=== PATIENT | female | born 1940 | race Caucasian/White ===

== ENCOUNTER → 2016-10-18 | Outpatient (CLI) | payer MEDICARE, BC ==
[~2016-10-18] MED LIST: ASPIR 8181 MG PO; ASPIRIN EC81 MG PO; BUTRANS1 EAC1 TOP; CRANBERRY500 M1 PO; CYMBALTA30 MG PO; DELTASONE5 MG PO; DOXYCYCLINE100 MG PO; FEOSOL325 MG PO; GLUCOPHAGE500 MG PO; HYDROCODON-ACE1 EAC4 PO; LEVOTHROID (S125 MCG PO; LOPRESSOR50 MG PO; LOVAZA1 GM PO; NORCO 5-325 MG1 TAB PO; OMEGA 3 1,0001 EACH PO; OXYGEN M-15 INH; PRILOSEC20 M1 PO; PRINIVIL (ZESTR20 MG PO; VITAMIN D1000 UNIT PO; VITAMIN D35000 UNI1 PO
--- NOTE | ~2016-10-18 | PUL ---
PATIENT'S NAME: CATE FELTON [facility] AGE: 76 Y [address] ROOM: [place] [address] LOCATION: [facility] ADMIT DATE: 10/18/2016 Pulmonary DISCHARGE DATE: FAMILY PHYSICIAN: Arlyn Triplett MD ATTENDING PHYSICIAN: Arlyn Triplett NAME OF PROCEDURE: Sleep study DATE OF PROCEDURE: 10/18/16 TECH: HEIDY Pina [place] [facility] [id number] MEDICAL HISTORY: The patient is a 76-year-old overweight woman with a history of persistent difficulty maintaining wakefulness. SLEEP STAGE SUMMARY: The patient was studied for 469 minutes of which she slept 345 minutes. She fell asleep in 13 minutes and slept for 74% of the night. Sleep architecture revealed a decline in slow wave, and REM sleep. RESPIRATORY SUMMARY: Oxygen saturations ranged from 78-95% and were below 88% for 14 minutes. There were a total of 49 obstructive apneas and 60 hypopneas for an apnea/hypopnea index moderately elevated at 19 events per hour. The majority of the events occurred to late in the study to allow for initiation of CPAP. Essentially all of the events occurred with the patient sleeping supine. EKG SUMMARY: Average heart rate during sleep was 71 beats per minutes. LIMB MOVEMENT SUMMARY: No clinically relevant periodic limb movements were noted. SUMMARY: Positional obstructive sleep apnea moderate in severity. PLAN: The patient will receive results from the ordering provider. BRAIN LING MD [facility]/ PATIENT'S NAME: CATE FELTON [facility] AGE: 76 Y [address] ROOM: [place] [address] LOCATION: [facility] ADMIT DATE: 10/18/2016 Pulmonary DISCHARGE DATE: FAMILY PHYSICIAN: Arlyn Triplett MD ATTENDING PHYSICIAN: Arlyn Triplett /[id number] dtt: 03/24/17 1252 , Brain Ling dtd: 10/21/16 0902
== END ==
LOC: GSLP 09-21 21:00
DX: G47.34 Idiopathic sleep related nonobstructive alveolar hypoventilation (principal); G47.33 Obstructive sleep apnea (adult) (pediatric)

== ENCOUNTER → 2016-11-23 | Outpatient (CLI) | payer MEDICARE, BC | END | disposition disaster alternative care site (69) | LOC: GBCOE 11:30 | DX: D75.89 Other specified diseases of blood and blood-forming organs (principal); D59.9 Acquired hemolytic anemia, unspecified; Z85.3 Personal history of malignant neoplasm of breast | CPT/HCPCS: G0206; G0279 ==

== ENCOUNTER 2017-01-10 10:30 | Emergency (ER) | payer MEDICARE, BC ==
--- NOTE | ~2017-01-10 | ER ---
PATIENT'S NAME: CATE FELTON [facility] AGE: 76 Y [address] ROOM: [place] [address] LOCATION: [facility] ADMIT DATE: 01/10/2017 ER/Outpatient Report DISCHARGE DATE: FAMILY PHYSICIAN: Arlyn Triplett MD ATTENDING PHYSICIAN: Eyad Cole Time of arrival: 1030 hours. Time of evaluation: 1035 hours. CHIEF COMPLAINT: Back pain. HISTORY OF PRESENT ILLNESS: The patient is a 76-year-old female, who presents to the emergency department today with a chief complaint of back pain. She reports this started about 12 hours prior to arrival. She reports that she feels like she needs to have a bowel movement but cannot. Last bowel movement was yesterday. The patient denies any vomiting. No weakness. No shortness of breath. She does have some increased fatigued. She does have some dull pressure. She denies any fevers or chills. No trauma or injury. PAST MEDICAL HISTORY: 1. Arthritis. 2. Hypothyroid. 3. Dyslipidemia. 4. Hypertension. 5. Polymyalgia rheumatica. 6. Diabetes mellitus type 2. PAST SURGICAL HISTORY: 1. Gallbladder. 2. Knee. SOCIAL HISTORY: The patient denies any tobacco, alcohol, or illicit drug use. ALLERGIES: NO KNOWN DRUG ALLERGIES. MEDICATIONS: Please see list. REVIEW OF SYSTEMS: All systems are reviewed by myself and are negative with the exception of those discussed in HPI and past medical history as well as the patient does PATIENT'S NAME: CATE FELTON [facility] AGE: 76 Y [address] ROOM: [place] [address] LOCATION: [facility] ADMIT DATE: 01/10/2017 ER/Outpatient Report DISCHARGE DATE: FAMILY PHYSICIAN: Arlyn Triplett MD ATTENDING PHYSICIAN: Eyad Cole report some chest pain and all that just started this morning and has episodes of sharp. PHYSICAL EXAMINATION: VITAL SIGNS: Weight 122.9 kg. Blood pressure 179/83, pulse 68, respiratory rate 18, temperature 97.3, oxygen saturation 98% on room air. GENERAL: The patient is a 76-year-old female, who appears stated age, in mild acute distress. HEENT: Head: Normocephalic and atraumatic. Pupils are equal, round, and reactive to light and accommodation. Extraocular motions are intact. Mucous membranes are moist. NECK: Supple. There is no nuchal rigidity. CARDIOVASCULAR: Regular rate and rhythm. No murmurs, rubs, or gallops. LUNGS: Clear to auscultation bilaterally. No wheezes, rales, or rhonchi. ABDOMEN: Soft, nontender. No rebound, rigidity, or guarding. Positive bowel sounds. The patient does have some mild left CVA tenderness to palpation. MUSCULOSKELETAL: The patient ambulates to the room. Moves all 4 extremities. SKIN: Warm and dry. No rashes or lesions noted. LABORATORY DATA AND X-RAYS: Labs and x-rays are obtained. EKG is obtained and is interpreted by myself on 1101 hours shows sinus rhythm with a rate of 73 left axis deviation, normal interval. No ST elevation or ST depression. 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 Urinalysis shows 100 leukocyte esterase, 100 glucose, five ketones, zero blood, 50 to 100 WBCs, 10 to 20 epithelials. CBC: White blood cell count 14.4, otherwise, normal. ANC is 13. Lactate 3.3. D-dimer 0.95. Coags are normal. Procalcitonin 0.10. CMP is unremarkable except for a BUN 25 and creatinine 1.2. LFTs are normal. Lipase is normal. CK is normal. Troponin is less than 0.04. CT scan of the abdomen and pelvis without IV contrast shows a nonobstructing 2 mm stone in left ureteral vesicular junction with mild hydronephrosis noted. IMPRESSION: 1. A 2-mm obstructing ureterolithiasis at the left ureteral vesicular junction. 2. Mild hydronephrosis secondary to a 2-mm obstructing ureterolithiasis at the left ureteral vesicular junction. 3. Questionable urinary tract infection. 4. Initial visit. EMERGENCY DEPARTMENT COURSE: The patient brought back to the examination room. Seen and evaluated by PATIENT'S NAME: JAIDEN FELTONKOKO Gaby [facility] AGE: 76 Y [address] ROOM: [place], [place] [address] LOCATION: [facility] ADMIT DATE: 01/10/2017 ER/Outpatient Report DISCHARGE DATE: FAMILY PHYSICIAN: Arlyn Triplett MD ATTENDING PHYSICIAN: Eyad Cole myself. IV is established. Laboratory analysis and imaging are obtained as described above. The patient did undergo a workup here in the emergency department. Does show evidence of a 2 mm ureterolithiasis with mild hydronephrosis. The patient's chest pain is not consistent with ACS. She has normal cardiac enzymes. The patient is reevaluated. She reports that she feels much improved. I have discussed the results of the workup with the patient. I have written a prescription for Flomax, [place], and Keflex. I have discussed that I would like her to follow up closely with Dr. Triplett, primary care doctor for re-evaluation of this. She is not having chest pain at this time. It just lasted for a few seconds. We will cover for potential urinary infection. I have asked she follows up with Urology. I have discussed return to care instructions including worsening symptoms or any other concerns return to the emergency department as soon as possible. The patient is agreeable without further questions at this time. DISPOSITION: The patient discharged home in good condition. DO LORI DENSON/modl /[id number] d: 01/10/17 1530 t: 01/11/17 1106, OUTPATIENT REPORT
--- NOTE | ~2017-01-10 | ER ---
PATIENT'S NAME: LISA FELTON [facility] AGE: 76 Y [address] ROOM: [place] [address] LOCATION: [facility] ADMIT DATE: 01/10/2017 ER/Outpatient Report DISCHARGE DATE: FAMILY PHYSICIAN: Arlyn Triplett MD ATTENDING PHYSICIAN: Eyad Cole This is a followup interaction with the patient, Lisa Felton. The patient was seen and evaluated by myself on 01/10/2017. HOSPITAL COURSE: The patient was diagnosed with a 2 mm kidney stone yesterday and did have a questionable urinary tract infection. At that time, she was discharged home with pain medicine and antibiotics. She was feeling good and was asked to follow up with the primary care doctor. Today, 01/11/2017, I did receive preliminary urine culture, which was positive for gram-negative rods greater than 100,000 CFUs per mL. The patient was contacted via phone at 0959 hours by myself. Upon questioning, the patient reports that she did have a few chills last night, but did sleep very well. She feels very good at this time. She does report that she passed her stone earlier this morning. She had good sleep last night. She did get her antibiotics filled and is taking her antibiotics. I have discussed the improtance of finishing these antibiotics. I have discussed with her to return to the emergency department for any high fevers, chills, or any worsening symptoms. I have discussed returning for any chest pain. The patient is feeling very well at this time. I did inform her of the preliminary data of the urine culture and have stressed following up with Dr. Triplett her primary care provider. DO LORI DENSON/eileen /[id number] d: 01/11/17 1135 t: 01/12/17 0846, OUTPATIENT REPORT
[~2017-01-10 10:30] MED LIST changes: -ASPIRIN EC81 MG PO; -BUTRANS1 EAC1 TOP; -CRANBERRY500 M1 PO; -CYMBALTA30 MG PO; -GLUCOPHAGE500 MG PO; -HYDROCODON-ACE1 EAC4 PO; -OMEGA 3 1,0001 EACH PO; -VITAMIN D35000 UNI1 PO
[2017-01-10 11:17] LABS: BASOPHIL % 0.3 %; EOSINOPHIL # 0.1 K/uL (0.0-0.5); EOSINOPHIL % 0.8 %; HEMATOCRIT 39.6 % (33.0-46.0); HEMOGLOBIN 13.1 g/dL (10.0-15.0); IMMATURE GRANULOCYTE # 0.1 K/uL (0.0-0.3); IMMATURE GRANULOCYTE % 0.5 %; LYMPHOCYTE # 1.1 K/uL (0.8-4.0); LYMPHOCYTE % 7.3 %; MCH 33.9 pg (27.0-34.0); MCHC 33.1 gm/dL (32.0-36.5); MCV 102.3 fl (83.0-98.0); MONOCYTE # 0.2 K/uL (0.0-1.0); MONOCYTE % 1.1 %; MPV 8.8 fl (9.4-12.4); NRBC % 0 /100WBC (0-0.00); PLATELET COUNT 166 K/uL (150-450); RBC 3.87 M/uL (3.50-5.50); WBC 14.4 K/uL (4.0-11.0)
[2017-01-10 11:34] LABS: INR - (THERAPEUTIC) 0.99 (0.92-1.07); PROTIME 10.4 SECONDS (9.8-11.4); PTT 21 SECONDS (25-32)
[2017-01-10 11:42] LABS: ALBUMIN 3.5 gm/dL (3.5-5.0); ALK PHOS 44 IU/L (33-138); ALT 63 IU/L (12-78); ANION GAP 16.5 (10.0-19.0); AST 48 IU/L (10-40); BLOOD UREA NITROGEN 25 mg/dL (6-24); CALCIUM 10.3 mg/dL (8.5-10.5); CHLORIDE 103 mMol/L (96-110); CO2 23 mMol/L (22-32); CPK 86 IU/L (21-215); CREATININE 1.2 mg/dL (0.5-1.1); ESTIMATED GFR (MDRD EQUATION) 44; POTASSIUM 3.5 mMol/L (3.7-5.1); SODIUM 139 mMol/L (135-145)
[2017-01-10 12:41] LABS: BILIRUBIN URINE NEGATIVE (NEGATIVE); BLOOD URINE 10 /UL (NEGATIVE); COLOR URINE YELLOW (YELLOW); GLUCOSE URINE 100 mg/dL (NEGATIVE); KETONE URINE 5 mg/dL (NEGATIVE); LEUKOCYTES URINE 100 /UL (NEGATIVE); NITRITE URINE NEGATIVE (NEGATIVE); PROTEIN URINE NEGATIVE (NEGATIVE); TURBIDITY URINE CLEAR (CLEAR); UROBILINOGEN URINE NORMAL (NORMAL)
[2017-01-10 12:52] LABS: AMORPHOUS URINE 2+ (NEGATIVE); BACTERIA URINE NEGATIVE (NEGATIVE); MUCUS URINE 1+ (NEGATIVE); WBC URINE 50-100 #/HPF (NEGATIVE)
[2017-02-24] MEDS ORDERED: GLUCOPHAGE500 MG PO (14:11)
[2017-02-24] MEDS ORDERED: OMEGA 3 1,0001 EACH PO (14:11)
[2017-02-24] MEDS ORDERED: CYMBALTA30 MG PO (14:12)
[2017-02-24] MEDS ORDERED: HYDROCODON-ACE1 EAC4 PO (14:13)
[2017-02-24] MEDS ORDERED: BUTRANS1 EAC1 TOP (14:13)
[2017-02-24] MEDS ORDERED: VITAMIN D35000 UNI1 PO (14:14)
[2017-02-24] MEDS ORDERED: ASPIRIN EC81 MG PO (14:14)
[2017-02-24] MEDS ORDERED: CRANBERRY500 M1 PO (14:14)
== END 2017-01-10 13:53 | disposition disaster alternative care site (69) ==
LOC: GMED 10:30
PROVIDERS: Emergency Medicine
DX: N13.2 Hydronephrosis with renal and ureteral calculous obstruction (principal); I10 Essential (primary) hypertension; E11.9 Type 2 diabetes mellitus without complications; M19.90 Unspecified osteoarthritis, unspecified site; E03.9 Hypothyroidism, unspecified; E78.5 Hyperlipidemia, unspecified; M35.3 Polymyalgia rheumatica; Z79.899 Other long term (current) drug therapy; Z98.890 Other specified postprocedural states; Z79.84 Long term (current) use of oral hypoglycemic drugs; Z79.82 Long term (current) use of aspirin
CPT/HCPCS: J1885; J3010; J7030

== ENCOUNTER → 2017-02-11 | Outpatient (CLI) | payer MEDICARE, BC ==
[~2017-02-11] MED LIST changes: +ASPIRIN EC81 MG PO; +BUTRANS1 EAC1 TOP; +CRANBERRY500 M1 PO; +CYMBALTA30 MG PO; +GLUCOPHAGE500 MG PO; +HYDROCODON-ACE1 EAC4 PO; +OMEGA 3 1,0001 EACH PO; +VITAMIN D35000 UNI1 PO
--- NOTE | ~2017-02-11 | ESTC ---
Cardiac Perfusion Imaging Demographics Patient Name PURNIMA Griffin Gender Female Patient Number [id number] Race Visit Number [id number] Ethnicity [employer] ID Room Number Accession Number [id number] Height Date of 1940 Weight Age 77 year(s) BSA Referring Physician Jeovanny Fuentes MD BMI Ioana Griffin MD Interpreting Jeovanny Fuentes MD Date of study 02/11/2017 Physician Supervising /KETAN Tony NM Technologist Sawyer Wiseman APRN Ordering Physician Jeovanny Fuentes MD Stress certified endoscopy technician Stress ECG Reading Viraj Tony Nurse Brock Morrison Physician ROLO lunchroom worker Procedure Type: Nuclear Stress Test:Pharmacological, Lexiscan, Cardiolite Stress Test Procedure Start time: 02/11/2017 08:07 Indications: Chest pain. Risk Factors The patient risk factors include:obesity, hypercholesterolemia, hypertension, family history of premature CAD and diabetes mellitus. Conclusions Summary Cardiolite SPECT images demonstrates decreased tracer uptake on the rest images in the anterior wall and anteroseptal regions. There is redistribution in the septal region on the stress images and an inducible reversible defect involving the anterior wall on the stress images consistent with possible ischemia. TID is markedly abnormal at 1.33 Gated images demonstrate overall preserved left ventricular function without inducible wall motion abnormalities. LVEF is 70% Stress Protocols Resting ECG RSR with RBBB Resting HR:86 bpm Resting BP:153/65 mmHg Pre-stress physical exam: Complains of intermittent Lt chest discomfort. Pain free today. Stress Protocol:Pharmacologic Peak HR:100 bpm HR response: Appropriate Peak BP:182/86 mmHg BP response: Appropriate Predicted HR: 144 bpm HR/BP product:49040 % of predicted HR: 69 Reason for termination:Infusion complete ECG Findings SR to Sinus Tachycardia Arrhythmias None Symptoms Cough, flushing. Stress Interpretation Appropriate hemodynamic response to Lexiscan. No significant ST-T wave changes with Lexiscan. ECG portion is negative for ischemia by diagnostic criteria. Stress supervision and interpretation provided by Hortencia Cali APRN . Imaging Results Summed scores - Summed stress score: 14 - Summed rest score: 13 - Summed difference score: 1 Stress ejection Ejection fraction:70 % EDV :87 ml ESV :26 ml Stroke volume :61 ml LV mass :128 gr Imaging Protocols Rest Stress Isotope:Tc99m Sestamibi IV Isotope: Tc99m Sestamibi IV Isotope dose:16.5 mCi Isotope dose:45.4 mCi Date:02/11/2017 07:35 Date:02/11/2017 08:50 Technique: SPECT Technique: Gated Supine SPECT Supine Scan Time:30 minutes post injection Scan Time:45-60 minutes post injection Procedure Medications - Regadenoson (Lexiscan) 0.4 mg IV over 10-15 sec. I.V. 0.4 mg. Medical History Admission Data Admission date: 02/11/2017 Admission Time: 07:06 Hospital Status: Outpatient. Signatures dtt: Alfredo Up (cardio) dtd: 02/11/17 0807 Physician Self Edit
== END | disposition disaster alternative care site (69) ==
LOC: GLAB 07:00 → GRAD 07:06
DX: E78.5 Hyperlipidemia, unspecified (principal); E78.00 Pure hypercholesterolemia, unspecified; I10 Essential (primary) hypertension; E66.9 Obesity, unspecified; R07.9 Chest pain, unspecified; R06.00 Dyspnea, unspecified; Z82.49 Family history of ischemic heart disease and other diseases of the circulatory system
CPT/HCPCS: A9500; J2785

== ENCOUNTER → 2017-02-23 | Outpatient (CLI) | payer MEDICARE, BC ==
[2017-02-23 16:54] LABS: BASOPHIL % 0.4 %; EOSINOPHIL # 0.1 K/uL (0.0-0.5); EOSINOPHIL % 1.3 %; HEMATOCRIT 36.3 % (33.0-46.0); HEMOGLOBIN 12.2 g/dL (10.0-15.0); IMMATURE GRANULOCYTE # 0.1 K/uL (0.0-0.3); IMMATURE GRANULOCYTE % 0.8 %; LYMPHOCYTE # 1.7 K/uL (0.8-4.0); LYMPHOCYTE % 16.8 %; MCH 34.9 pg (27.0-34.0); MCHC 33.6 gm/dL (32.0-36.5); MCV 103.7 fl (83.0-98.0); MONOCYTE # 0.4 K/uL (0.0-1.0); MONOCYTE % 4.4 %; MPV 9.1 fl (9.4-12.4); NEUTROPHIL # (ANC) 7.6 K/uL (1.8-7.8); NEUTROPHIL % 76.3 %; NRBC % 0 /100WBC (0-0.00); RDW-CV 13.7 % (11.9-14.6); WBC 9.9 K/uL (4.0-11.0)
[2017-02-23 17:00] LABS: PLATELET COUNT 204 K/uL (150-450)
[2017-02-23 17:03] LABS: ALBUMIN 3.4 gm/dL (3.5-5.0); ANION GAP 14.2 (10.0-19.0); CALCIUM 10.1 mg/dL (8.5-10.5); CREATININE 1.2 mg/dL (0.5-1.1); PHOSPHORUS 2.5 mg/dL (2.5-4.9); POTASSIUM 4.2 mMol/L (3.7-5.1)
== END | disposition disaster alternative care site (69) ==
LOC: LCNC 16:41
PROVIDERS: Internal Medicine Interventional Cardiology
DX: R07.9 Chest pain, unspecified (principal)

== ENCOUNTER 2017-03-01 07:55 | Outpatient (CLI) | payer MEDICARE, BC ==
[~2017-03-01] VITALS: Ht 162.6 cm; Wt 122.4 kg
--- NOTE | ~2017-03-01 | CATH ---
Cardiac Diagnostic Report Demographics Patient Name PURNIMA Griffin Gender Female Date of 1940 Age 77 year(s) Patient Number [id number] Date of Study 03/01/2017 Visit Number [id number] Room Number [id number] [place] [id number] Ht 163 cm Wt 122.4 kg Referring Ioana Griffin MD Primary Physician Physician Performing Jeovanny Fuentes MD Secondary Physician Physician Diagnostic Jeovanny Fuentes MD Assisting Physician Physician Interventional Physician Field Map Technician Physician Findings and Conclusions Diagnostic Findings and Conclusion Non obstructive CAD Normal LV function Diagnostic Recommendations Medical therapy Procedure Description The patient was brought to the diagnostic cardiac catheterization-EP laboratory in the fasting, non-sedated state. Informed consent was obtained in the written and verbal form after the risks and benefits were explained. The patient had no further questions and agreed to proceed. The planned puncture-incision site(s) were shaved and prepped with ChloraPrep and draped in the usual sterile manner. Conscious sedation, supplemental oxygen, and pain control medications were delivered by a registered nurse under physician guidance. Surface ECG rhythm, blood pressure measurement, and pulse oximetry were monitored throughout the procedure. Arterial access. The access site was infiltrated with lidocaine. The vessel was entered with the Seldinger technique. A sheath was advanced into the vessel and used for catheter placement. Selective left coronary angiography. A catheter was advanced into the left coronary vessel ostium under Fluoroscopic guidance. Contrast was injected by hand. Images were obtained in multiple projections. Selective right coronary angiography. A catheter was advanced into the right coronary vessel ostium under fluoroscopic guidance. Contrast was injected by hand. Images were obtained in multiple projections. Left heart catheterization with ventriculography. A catheter was advanced across the aortic valve to the left ventricle under fluoroscopic guidance. Resting hemodynamics were obtained. With the catheter at the left ventricular apex, contrast was injected. Images were obtained in ROSALBA projections. Post-ventriculography LV pressure was obtained. The catheter was gradually withdrawn into the aorta with continuous pressure recording. Arterial artery hemostasis was achieved. The patient was transferred to a regular nursing floor via cart accompanied by a nurse. The patient left the laboratory in stable condition. Diagnostic Cath Status: Elective Procedure Procedure Type Diagnostic procedure:Ventriculogram:, Left, Angiography:, Coronary Angios w/[facility] Indications: Abnormal Stress Test and Chest discomfort. The procedure was explained in detail to the patient. Risks, complications and alternative treatments were reviewed. Written consent was obtained. Medications Reviewed with Patient prior to Procedure. Angiographic Findings Dominance: Right Cardiac Arteries and Lesion Findings LMCA: Normal (0% Stenosis).Large LAD: Normal (0% Stenosis).LAD large proximal then small mid to distal. Diag 1 small, Diag 2 large (LAD equivalent) Lesion on Prox CX: Ostial.40% stenosis . RCA: Normal (0% Stenosis).RCA large, PL and PDA medium Coronary Tree Procedure Data Procedure Date Date: 03/01/2017Start: 10:45 AMEnd: 11:07 AM Entry Locations - Retrograde Percutaneous access was performed through the Right Femoral artery (Primary location). A 6 Fr sheath was inserted. Hemostasis was successfully obtained using Perclose ProGlide (Oliveros). Closure Comments: Perclose deployed by Nitin. Procedure Medications Order and Administration + + +-------+------+ !Time !Medication !Dosage !Route ! + + +-------+------+ !03/01/2017 10:31 AM !Fentanyl !25 mcg !I.V. ! + + +-------+------+ !03/01/2017 10:31 AM !Versed !1 mg !I.V. ! + + +-------+------+ Devices Used - A6 Fr. BS JL 4 Diag. Catheterwas used for:Left coronary angiography. - A6 Fr. BS JR 4 Diag. Catheterwas used for:Right coronary angiography. - A6 Fr. BS Angled Pigtail Diag. Catheterwas used for:Left ventriculography. Contrast Material - Isovue 39507 ml Fluoroscopy Time: Diagnostic: 2:42 minutes. Total: 2:42 minutes. Fluoroscopy Dose: Diagnostic: 1124 mGy. Total: 1124 mGy. Estimated Blood Loss: 3 ml. Medical History Performed Procedures and Imaging Results - Stress testing with SPECT MPIwas performed. Results were: Positive. Allergies - No known allergies. Risk Factors The patient risk factors include:hypertension, family history of premature CAD, orally-treated diabetes mellitus, dyslipidemia and former tobacco use. Admission Data Admission Date: 03/01/2017 Admission Time: 07:55 AM Admit Source: Other Insurance Payors: Medicare. Admission Medications + +------+------+ + + + + !Medication !Dosage!Times !Last !Last !Administered !Comments ! ! ! !Per !Delivery !Delivery ! ! ! ! ! !Day !Date !Time ! ! ! + +------+------+ + + + + !Beta Cassidy! ! ! ! !Yes ! ! !(any) ! ! ! ! ! ! ! + +------+------+ + + + + !ALCIRA ! ! ! ! !Yes ! ! !Inhibitor ! ! ! ! ! ! ! !(any) ! ! ! ! ! ! ! + +------+------+ + + + + !Aspirin ! ! ! ! !Yes ! ! !(any) ! ! ! ! ! ! ! + +------+------+ + + + + Clinical Evaluation Leading to Procedure - The patient's CAD presentation was assessed as: Stable angina. - Anti-anginal medications were prescribed during the past two weeks. The medication is: Beta Blockers. VA LV function assessed as:Normal. Ejection Fraction - 02/11/2017 - Method: Radionucleotide. EF%: 70. - 03/01/2017 - Method: LV gram. EF%: 65. LVA Segment Contractility 1 - Normal 3 - Mild 5 - Severe 7 - Dyskinesis hypokinesis hypokinesis 2 - 4 - Moderate 6 - Akinesis 8 - Aneurysm Hypokinesis hypokinesis Hemodynamics Condition: Rest O2 Consumption: Estimated: 194.94Heart Rate: 61 bpm Pressures (mmHg) +-----+ + !Site !Pressure ! +-----+ + !AO !168/73 (112) ! +-----+ + !LV !176/15 ,24 ! +-----+ + !LV !170/14 ,24 ! +-----+ + !LV !170/10 ,24 ! +-----+ + !LV !168/9 ,24 ! +-----+ + !AO !165/69 (109) ! +-----+ + !LV !168/9 ,24 ! +-----+ + Valve Gradients and Areas + +---------+---------+---------+ +---------+ + !Valve !Peak !Mean !Area !Index !Flow !Source ! + +---------+---------+---------+ +---------+ + !Aortic !2 !0 ! ! ! ! ! + +---------+---------+---------+ +---------+ + !Aortic !2 !0 ! ! ! ! ! + +---------+---------+---------+ +---------+ + Shunts Oxygen Values O2 Capacity 165.92 O2 Consumption 194.94 Discharge Data Discharge Date: 03/01/2017 Hospital Status: Outpatient Signatures dtt: Alfredo Up (cardio) dtd: 03/01/17 1045 Physician Self Edit
== END 2017-03-01 14:10 | disposition disaster alternative care site (69) ==
LOC: GPOC 07:55 → GPCU 07:55 → GPOC 08:00
PROC: 4A023N7 Measurement of Cardiac Sampling and Pressure, Left Heart, Percutaneous Approach (ICD-10-PCS; principal; 2017-03-01)
PROC: B216YZZ Fluoroscopy of Right and Left Heart using Other Contrast (ICD-10-PCS; 2017-03-01)
DX: I25.111 Atherosclerotic heart disease of native coronary artery with angina pectoris with documented spasm (principal)
CPT/HCPCS: C1760; J1644; J2001; J2250; J3010; J7030